=== PATIENT | female | born 1985 | race American Indian/Alaskan Native ===

== ENCOUNTER 2017-04-12 11:35 | Emergency (ER) | payer OTHER ==
[2017-04-12 12:03] VITALS: BP 120/57; TEMP 97; O2SAT 100
--- NOTE | 2017-04-12 12:33 | ED PDOC ---
HPI: General Adult Time Seen by Provider: 04/12/17 12:16 Chief Complaint (Nursing): Eye Problem Chief Complaint (Provider): Left eye swelling, left ankle pain History/Exam Limitations: no limitations Onset/Duration Of Symptoms: Days Have you had recent travel within the past 21 days to any of the following countries: [place], [place], [place] or [place]?: No Current Symptoms Are (Timing): Still Present Additional History Per: Patient Additional Complaint(s): The patient is a 32yo female, no known past medical history, presents to the ED for evaluation of left eye swelling x 1 days and left ankle pain for the past couple days. Patient reports she had similar foot pain symptoms approximately a month ago, which resolved of its own. She denies any control use. Of note , patient states for the past couple months, she has been walking a lot more than usual. Patient offers no additional medical complaints. Past Medical History Reviewed: Historical Data, Nursing Documentation, Vital Signs Vital Signs: Last Vital Signs Temp 97.0 F L 04/12/17 11:58 Pulse 68 04/12/17 13:12 Resp BP 120/57 L 04/12/17 11:58 Pulse Ox 100 04/12/17 13:12 - Medical History PMH: No Chronic Diseases - Surgical History Surgical History: No Surg Hx - Family History Family History: States: No Known Family Hx - Social History Current smoker - smoking cessation education provided: Yes Alcohol: None Drugs: Denies - Home Medications Home Medications: Ambulatory Orders Medication Instructions Recorded Polymyxin/Trimethoprim Sulfate 1 drop XX Q6H 10 Days bottle 04/12/17 [Polytrim Ophth Soln] - Allergies Allergies/Adverse Reactions: Allergies Allergy/AdvReac Type Severity Reaction Status Date / Time No Known Allergies Allergy Verified 04/12/17 12:04 Review of Systems Eyes: Positive for: Eyelid Inflammation (left eye) Musculoskeletal: Positive for: Foot Pain (left ankle pain) Physical Exam - Reviewed Nursing Documentation Reviewed: Yes Vital Signs Reviewed: Yes - Physical Exam Appears: Positive for: Non-toxic, No Acute Distress Head Exam: Positive for: ATRAUMATIC, NORMAL INSPECTION, NORMOCEPHALIC Skin: Positive for: Warm, Dry Eye Exam: Positive for: Periorbital swelling (left upper eyelif swelling, consistent with sty) Neck: Positive for: Supple Cardiovascular/Chest: Positive for: Regular Rate, Rhythm, Murmur (systolic) Respiratory: Positive for: Normal Breath Sounds. Negative for: Respiratory Distress Extremity: Positive for: Normal ROM, Tenderness (tnederness to distal tibia and fibula of left lower extremity). Negative for: Calf Tenderness, Deformity, Swelling - ECG ECG: Positive for: Interpreted By Me, Viewed By Me ECG Rhythm: Positive for: Normal QRS. Negative for: ST/T Changes Rate: 68 O2 Sat by Pulse Oximetry: 100 Medical Decision Making Medical Decision Making: Time: 1215 Impression: Left foot pain Plan: -- XR left foot -- Patient declined pain medications Reassess Time: 1245 Patient declined the XR of her left foot. Patient now reports she has had a chest pain, intermittently for the past 5 years. She states the pain comes once a week and lasts a couple minutes at a time, and resolved spontaneously. She denies any associated nausea, vomiting, diaphoresis. -- EKG ordered Scribe Attestation: Documented by Oliva Almazan acting as a scribe for TY Novoa Provider Attestation: All medical record entries made by the Scribe were at my direction and personally dictated by me. I have reviewed the chart and agree that the record accurately reflects my personal performance of the history, physical exam, medical decision making, and the department course for this patient. I have also personally directed, reviewed, and agree with the discharge instructions and disposition. Disposition - Clinical Impression Clinical Impression: Sty, Chest pain, Ankle pain - Disposition Referrals: [facility] [Outside] Disposition: Routine/Home Disposition Time: 13:18 Condition: STABLE Prescriptions: Polymyxin/Trimethoprim Sulfate [Polytrim Ophth Soln] 1 drop XX Q6H 10 Days bottle Instructions: Rosalee (ED) Forms: [employer] (Yi)
[2017-04-12 13:12] VITALS: PULSE 68
--- NOTE | 2017-04-13 10:45 | CARD ---
APPROVED REPORT EKG Measurement Heart [id number] IN 126P4 [id number] <Conclusion> Normal sinus rhythm Normal ECG
== END 2017-04-12 13:22 | disposition home or self-care (01) ==
LOC: H.ER 11:35
DX: R07.89 Other chest pain (principal); M25.572 Pain in left ankle and joints of left foot; H00.14 Chalazion left upper eyelid

== ENCOUNTER 2017-06-22 13:00 | Emergency (ER) | payer SELFPAY ==
[2017-06-22 13:09] VITALS: BP 103/56; PULSE 87; RESP 18; TEMP 98.3; O2SAT 98
--- NOTE | 2017-06-22 13:45 | ED PDOC ---
HPI: Female Pain Time Seen by Provider: 06/22/17 13:10 Chief Complaint (Nursing): Female Genitourinary Chief Complaint (Provider): Female Genitourinary History Per: Patient History/Exam Limitations: no limitations Onset/Duration Of Symptoms: Persistent (x3 wks) Current Symptoms Are (Timing): Still Present Additional Complaint(s): Veronica Arora is a 32 year old female that presents to the ED with a chief complaint of pain on urination that she has been experiencing for the past 3 weeks. Patient reports that she typically experiences some nausea with her period, which she is currently has. She denies any back pain or abdominal pain. Pt denies vaginal discharge. Past Medical History Reviewed: Historical Data, Nursing Documentation, Vital Signs Vital Signs: Last Vital Signs Temp 98.3 F 06/22/17 13:06 Pulse 87 06/22/17 13:06 Resp 18 06/22/17 13:06 BP 103/56 L 06/22/17 13:06 Pulse Ox 98 06/22/17 13:06 - Medical History PMH: No Chronic Diseases - Surgical History Surgical History: No Surg Hx - Family History Family History: States: Unknown Family Hx - Living Arrangements Living Arrangements: With Family - Social History Current smoker - smoking cessation education provided: No - Home Medications Home Medications: Ambulatory Orders Medication Instructions Recorded Polymyxin/Trimethoprim Sulfate 1 drop XX Q6H 10 Days bottle 04/12/17 [Polytrim Ophth Soln] - Allergies Allergies/Adverse Reactions: Allergies Allergy/AdvReac Type Severity Reaction Status Date / Time No Known Allergies Allergy Verified 04/12/17 12:04 Review of Systems Gastrointestinal: Positive for: Nausea (Typically occurs with period). Negative for: Abdominal Pain Genitourinary Female: Positive for: Dysuria Musculoskeletal: Negative for: Back Pain Physical Exam - Reviewed Nursing Documentation Reviewed: Yes Vital Signs Reviewed: Yes - Physical Exam Appears: Positive for: Non-toxic, No Acute Distress Head Exam: Positive for: ATRAUMATIC, NORMOCEPHALIC Skin: Positive for: Normal Color, Warm, Dry Eye Exam: Positive for: EOMI, Normal appearance, PERRL ENT: Positive for: Normal ENT Inspection Neck: Positive for: Normal Cardiovascular/Chest: Positive for: Regular Rate, Rhythm. Negative for: Murmur Respiratory: Positive for: Normal Breath Sounds. Negative for: Wheezing Gastrointestinal/Abdominal: Positive for: Normal Exam, Soft. Negative for: Tenderness Back: Positive for: Normal Inspection. Negative for: L CVA Tenderness, R CVA Tenderness Extremity: Positive for: Normal ROM. Negative for: Tenderness, Swelling Neurologic/Psych: Positive for: Alert, Oriented. Negative for: Motor/Sensory Deficits - ECG O2 Sat by Pulse Oximetry: 98 (RA) Pulse Ox Interpretation: Normal Medical Decision Making Medical Decision Making: Impression: Plan: * Scribe Attestation: Documented by Kaylee Henderson, acting as a scribe for Nicole Cornejo PA-C. Provider Scribe Attestation: All medical record entries made by the Scribe were at my direction and personally dictated by me. I have reviewed the chart and agree that the record accurately reflects my personal performance of the history, physical exam, medical decision making, and the department course for this patient. I have also personally directed, reviewed, and agree with the discharge instructions and disposition. Disposition - Clinical Impression Clinical Impression: Dysuria - Patient ED Disposition Is Patient to be Admitted: No - Disposition Disposition: Routine/Home Disposition Time: 14:12 Condition: GOOD Additional Instructions: Cultures sent. Instructions: Dysuria (ED) Forms: [employer] (Ecuadorean)
== END 2017-06-22 14:26 | disposition home or self-care (01) ==
LOC: H.ER 13:00
DX: N39.0 Urinary tract infection, site not specified (principal)

== ENCOUNTER 2017-08-04 00:07 | Emergency (ER) | payer SELFPAY ==
[2017-08-04 00:20] VITALS: BP 112/61; PULSE 68; RESP 16; TEMP 98; O2SAT 96
--- NOTE | 2017-08-04 01:36 | ED PDOC ---
Syncope/Near Syncope/Dizziness Time Seen by Provider: 08/04/17 00:38 Chief Complaint (Nursing): Dizziness/Lightheaded Chief Complaint (Provider): Dizziness/Lightheaded History Per: Patient History/Exam Limitations: no limitations Onset/Duration Of Symptoms: Days (x 1) Current Symptoms Are (Timing): Still Present Additional Complaint(s): 32 year old female with a history of heart murmur presents to ED complaining of dizziness whenever she stands from a seated position. States that she is sees dark spots in her eyes for a short period of time before they disappear. Also complains of intermittent chest pain that she has had for years. Admits to not drinking a lot of water regularly. PMD: none provided Past Medical History Reviewed: Historical Data, Nursing Documentation, Vital Signs Vital Signs: Last Vital Signs Temp 98 F 08/04/17 00:17 Pulse 68 08/04/17 00:17 Resp 16 08/04/17 00:17 BP 112/61 08/04/17 00:17 Pulse Ox 96 08/04/17 00:17 - Medical History Other PMH: Heart murmur - Surgical History Surgical History: No Surg Hx - Family History Family History: States: Unknown Family Hx - Home Medications Home Medications: Ambulatory Orders Medication Instructions Recorded Polymyxin/Trimethoprim Sulfate 1 drop XX Q6H 10 Days bottle 04/12/17 [Polytrim Ophth Soln] - Allergies Allergies/Adverse Reactions: Allergies Allergy/AdvReac Type Severity Reaction Status Date / Time Penicillins Allergy RASH Verified 08/04/17 00:17 Review of Systems ROS Statement: Except As Marked, All Systems Reviewed And Found Negative Cardiovascular: Positive for: Chest Pain (intermittent) Neurological: Positive for: Dizziness Physical Exam - Reviewed Nursing Documentation Reviewed: Yes Vital Signs Reviewed: Yes - Physical Exam Appears: Positive for: Non-toxic (appears very thin ), No Acute Distress Head Exam: Positive for: ATRAUMATIC, NORMAL INSPECTION, NORMOCEPHALIC Skin: Positive for: Normal Color, Warm, Dry Eye Exam: Positive for: Normal appearance, EOMI, PERRL Neck: Positive for: Normal, Painless ROM, Supple Cardiovascular/Chest: Positive for: Regular Rate, Rhythm. Negative for: Murmur Respiratory: Positive for: Normal Breath Sounds. Negative for: Respiratory Distress Gastrointestinal/Abdominal: Positive for: Normal Exam, Soft. Negative for: Tenderness Back: Positive for: Normal Inspection. Negative for: L CVA Tenderness, R CVA Tenderness, Vertebral Tenderness Extremity: Positive for: Normal ROM. Negative for: Tenderness, Deformity Neurologic/Psych: Positive for: Alert, Oriented - ECG O2 Sat by Pulse Oximetry: 96 (RA) Pulse Ox Interpretation: Normal Medical Decision Making Medical Decision Makin:45 Impression: Dehydration Initial Plan: --EKG --Urine preg --Accucheck Patient is now feeling better. Will be discharged home. Return to ED if symptoms persist or worsen. Scribe Attestation: Documented by Liss Ashley, acting as a scribe for Yariel Odonnell MD Provider Scribe Attestation: All medical record entries made by the Scribe were at my direction and personally dictated by me. I have reviewed the chart and agree that the record accurately reflects my personal performance of the history, physical exam, medical decision making, and the department course for this patient. I have also personally directed, reviewed, and agree with the discharge instructions and disposition. Disposition - Clinical Impression Clinical Impression: Dehydration - Patient ED Disposition Is Patient to be Admitted: No - Disposition Disposition: Routine/Home Disposition Time: 01:40 Condition: IMPROVED
--- NOTE | 2017-08-04 08:29 | CARD ---
APPROVED REPORT EKG Measurement Heart [id number] 136P32 [id number] <Conclusion> Sinus rhythm with premature atrial complexes Otherwise normal ECG
== END 2017-08-04 01:42 | disposition home or self-care (01) ==
LOC: H.ER 00:07
DX: E86.0 Dehydration (principal); Z88.0 Allergy status to penicillin